=== PATIENT | female | born 1995 | race Caucasian/White ===

== ENCOUNTER 2019-04-18 09:50 | Day surgery (SDC) | payer OTHER ==
[~2019-04-18] VITALS: Ht 160 cm; Wt 84.8 kg
[2019-04-18] MEDS ORDERED: fentaNYL 0.05 MG/ML VIAL ONE (11:33)
[2019-04-18] MEDS ORDERED: HYDROmorphone PFS 2 MG/ML SYR ONE (11:33)
[2019-04-18] MEDS ORDERED: BUPIVACAINE-MPF/EPI 0.25% 30 ML VIAL INJ ONE (11:35)
[2019-04-18] MEDS ORDERED: ceFAZolin 1,000 MG VIAL ONE (11:35)
[2019-04-18] MEDS ORDERED: HYDROcodone/APAP 5/325 MG 1 TAB TAB PO PRN (12:50)
[2019-04-18] MEDS ORDERED: MORPHINE SULFATE 4 MG/ML SYR IV PRN (12:50)
[2019-04-18] MEDS ORDERED: ONDANSETRON 4 MG/2 ML VIAL IV PRN (12:50)
[2019-04-18] MEDS ORDERED: HYDROmorphone 1 MG/ML AMP IVP PRN (12:50)
[2019-04-18] MEDS ORDERED: MORPHINE SULFATE 2 MG/ML SYR IVP PRN (12:50)
[2019-04-18] MEDS ORDERED: ACETAMINOPHEN 325 MG TAB PO PRN (12:50)
[2019-04-18] MEDS ORDERED: DESFLURANE 240 ML BTL INH ONE (18:08)
[2019-04-18] MEDS ORDERED: PROPOFOL 200 MG/20 ML VIAL IV ONE (18:08)
== END 2019-04-18 14:18 | disposition home or self-care (01) ==
LOC: MDS 09:50 → MMU 09:51 → MDS 14:18
PROVIDERS: ATTEND Surgery
DX: K42.0 Umbilical hernia with obstruction, without gangrene (principal); E66.9 Obesity, unspecified; Z68.32 Body mass index [BMI] 32.0-32.9, adult
CPT/HCPCS: 49585; 71045; C1781; J0690; J1170; J2704; J3010; J3490; J7060; J7120

== ENCOUNTER 2023-02-20 20:50 | Emergency (ER) | payer SELFPAY ==
[~2023-02-20] VITALS: Ht 160 cm; Wt 93.4 kg
[2023-02-20 21:43] VITALS: BP 139/70
--- NOTE | 2023-02-21 00:34 | NUR ---
pt to bed 7
--- NOTE | 2023-02-21 00:34 | NUR ---
pt ambulated to bed 7
[2023-02-21] MEDS ORDERED: KETOROLAC 30 MG/ML VIAL IM ONE (01:10)
--- NOTE | 2023-02-21 01:13 | NUR ---
27YR OLD FEMALE BIB SELF C/O THROAT PAIN X2DAYS . RESP EVEN AND UNLABORED. PT STATES HAVING THROAT PAIN WITH UNPRODUCTIVE COUGH. DENIES SOB OR CP . PT DENIES FEVER V/D. PT IS A&OX4. HOB ELEVATED. BED AT LOWEST LEVEL SIDE RAILS UP X2 NKDA NO MED HX
[2023-02-21] MEDS ORDERED: ACET-10509 PO (01:26)
[2023-02-21] MEDS ORDERED: AMOX500C25 PO (01:26)
[2023-02-21] MEDS ORDERED: NAPR-54 PO (01:26)
--- NOTE | 2023-02-21 01:26 | NUR ---
THROAT SWAB COLLECTED AND SENT TO LAB
--- NOTE | 2023-02-21 01:51 | NUR ---
Patient discharged with v/s stable. Written and verbal after care instructions given and explained. Patient verbalized understanding. Ambulatory with steady gait. All questions addressed prior to discharge. Advised to follow up with PMD.
--- NOTE | 2023-02-21 02:13 | NUR ---
The patient's care was reviewed and supervised by Mckenna Coello RN.
== END 2023-02-21 01:51 | disposition home or self-care (01) ==
LOC: MED 20:50
DX: J02.9 Acute pharyngitis, unspecified (principal); R07.0 Pain in throat; F17.290 Nicotine dependence, other tobacco product, uncomplicated; Z79.899 Other long term (current) drug therapy; Z98.890 Other specified postprocedural states
CPT/HCPCS: 87081; 96372; 99283; J1885